=== PATIENT | female | born 1995 | race Caucasian/White ===

== ENCOUNTER 2016-12-02 17:15 | Outpatient (CLI) | payer OTHER | END 2016-12-02 17:16 | disposition critical access hospital (66) | LOC: EMS 17:15 | PROVIDERS: ATTEND Surgery | DX: M54.2 Cervicalgia (principal); V43.52XA Car driver injured in collision with other type car in traffic accident, initial encounter; Y92.413 State road as the place of occurrence of the external cause | CPT/HCPCS: A0425; A0429 ==

== ENCOUNTER 2016-12-02 17:46 | Emergency (ER) | payer OTHER ==
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
--- NOTE | 2016-12-02 18:46 | CT Preliminary Report ---
Exam: CT Cervical Spine W/O IMPRESSION: No evidence of cervical spine fracture or dislocation. [facility] SITE ID: [id number]
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
--- NOTE | 2016-12-02 18:50 | CT Preliminary Report ---
Exam: CT Head W/O IMPRESSION: No acute intracranial CT abnormality. [facility] SITE ID: [id number]
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
[2016-12-02 19:08] VITALS: BP 125/81
== END 2016-12-02 19:10 | disposition home or self-care (01) ==
LOC: ED 17:46
DX: S09.90XA Unspecified injury of head, initial encounter (principal); S13.9XXA Sprain of joints and ligaments of unspecified parts of neck, initial encounter; V43.52XA Car driver injured in collision with other type car in traffic accident, initial encounter
CPT/HCPCS: 70450; 72125; 99283